=== PATIENT | female | born 1995 | race Hispanic/Latino ===

== ENCOUNTER 2020-12-27 05:14 | Emergency (ER) | payer MEDICAID ==
[~2020-12-27 05:14] MED LIST: PREN1TAB80 PO
== END 2020-12-27 09:52 | disposition left against medical advice (07) ==
LOC: EDH 05:14
DX: O20.9 Hemorrhage in early pregnancy, unspecified (principal); Z3A.10 10 weeks gestation of pregnancy; Z53.21 Procedure and treatment not carried out due to patient leaving prior to being seen by health care provider